=== PATIENT | male | born 1945 | race Caucasian/White ===

== ENCOUNTER 2017-07-31 13:20 | Observation (INO) ==
--- NOTE | 2017-07-31 13:46 | Emergency Department Note ---
Disposition Clinical Impression: TIA (transient ischemic attack) Disposition: Admitted As Inpatient Condition: Good General Adult HPI - General Chief complaint: ED Shortness of Breath/Dyspnea Stated complaint: kim x 2 days Time Seen by Provider: 07/31/17 13:23 Source: patient, EMS Limitations: no limitations Nursing Notes Reviewed: Yes Vital Signs Reviewed: Yes - History of Present Illness Pain Scale: 0 - Related Data Home Medications Medication Instructions Recorded Confirmed Aspirin Enteric Coated [Aspirin EC] 81 mg PO DAILY 07/31/17 07/31/17 Carbidopa/Levodopa 25/100 [Sinemet 1 each PO Q6H 07/31/17 07/31/17 25/100] Losartan Potassium [Cozaar] 100 mg PO DAILY 07/31/17 07/31/17 Phentermine/Topiramate [Qsymia 1 each PO DAILY 07/31/17 07/31/17 3.75 mg-23 mg Capsule] Propranolol HCl 40 mg PO BID 07/31/17 07/31/17 Rivaroxaban [Xarelto] 20 mg PO DAILY 07/31/17 07/31/17 Testosterone [Androgel] 2 spray TD DAILY 07/31/17 07/31/17 Tramadol HCl [Ultram] 100 mg PO QAM AND QHS 07/31/17 07/31/17 Allergies Allergy/AdvReac Type Severity Reaction Status Date / Time STATIN AdvReac See Uncoded 07/31/17 13:25 Comments Past Medical History - Past Medical History Medical history: Reports: coronary artery disease, CVA, hypertension, other Psychiatric history: Reports: depression - Social History Smoking Status: Former smoker Smokeless Tobacco Status: No Alcohol use: Reports: occasionally Drug use: Reports: none Physical Exam - General Limitations: no limitations General appearance: alert Course Vital Signs Temperature 98.3 F 07/31/17 13:25 Pulse Rate 79 07/31/17 13:25 Respiratory Rate 20 07/31/17 13:25 Blood Pressure 172/112 07/31/17 13:25 O2 Sat by Pulse Oximetry 95 07/31/17 13:25 Temperature 98.3 F 07/31/17 13:25 Pulse Rate 77 07/31/17 15:08 Respiratory Rate 20 07/31/17 15:08 Blood Pressure 174/104 07/31/17 15:08 O2 Sat by Pulse Oximetry 96 07/31/17 15:08 Oxygen Delivery Oxygen Delivery Room Air Medical Decision Making - MDM Narrative Medical decision making narrative: I examined this patient and my medical decision-making was reviewed with the Resident Physician. I agree with the documented findings, disposition and treatment plan as described except to the extent set forth below. Patient was seen on arrival by EMS from the [facility]. He was evaluated by Dr. King and myself, I agree with his evaluation and management plan, supervising care the patient's stay. 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 Staff noticed that he was sounds like a little ataxic. He said he was irritable. He had some little bit of memory loss. He had a stroke in September that left him with some difficulty with moving his fifth and fourth fingers of the left hand. He said otherwise he thinks he is fine. Denies any headache or chest pain. He states had a chest cold for last couple weeks which she thinks is probably viral. Were negative and a workup on him repeat a CT check lab work and reassess. He is in agreement with this plan. Head CT 07/31/17 13:38 IMPRESSION: No acute intracranial abnormality. Old infarction in the right parietal lobe, evolved since the prior study. Mild parenchymal volume loss. Mild chronic microvascular disease. D/ / Jamarcus Chou MD / Jamarcus Chou MD Interpreting Provider: Jamarcus Chou MD Chest X-Ray 07/31/17 13:43 IMPRESSION: 1. Chronic linear opacities within the lung bases bilaterally which may reflect scarring versus atelectasis. 2. Stable cardiomegaly. D/ / Asael Ackerman MD / Asael Ackerman MD Interpreting Provider: Asael Ackerman MD 1450 hrs. going to speak with neurology and admit him to the hospital. - Lab Data Result diagrams: 07/31/17 13:52 07/31/17 13:52 Lab Results 07/31/17 07/31/17 07/31/17 Range/Units 13:52 13:52 13:52 WBC 9.1 (4.3-11.1) K/mcL RBC 5.31 (4.19-5.50) M/mcL Hgb 16.7 (12.9-16.9) g/dL Hct 51.3 H (37.5-50.1) % MCV 96.6 (83.0-100.0) fL MCH 31.5 (28.0-33.3) pg MCHC 32.6 (31.6-35.5) g/dL RDW 14.9 H (11.5-14.5) % Plt Count 207 (140-400) K/mcL MPV 10.8 (9.4-12.4) fL Immature Gran % 0.3 (0-4) % Seg Neutrophils % 72.8 % Lymphocytes % 12.9 % Monocytes % 11.2 % Eosinophils % 2.4 % Basophils % 0.4 % Neutrophils # 6.6 (1.6-8.9) K/mcL Lymphocytes # 1.2 (0.6-4.6) K/mcL Monocytes # 1.0 (0.0-1.3) K/mcL Eosinophils # 0.2 (0.0-0.6) K/mcL Basophils # 0.0 (0.0-0.2) K/mcL PT 12.8 H (9.4-12.1) Seconds INR 1.2 APTT 31.4 (26.0-36.0) Seconds Sodium 139 (136-145) mEq/L Potassium 4.1 (3.5-4.5) mEq/L Chloride 106 (98-109) mEq/L Carbon Dioxide 27 (19-29) mEq/L BUN 18 (8-26) mg/dL Creatinine 0.91 (0.72-1.25) mg/dL Est GFR ( Amer) > 60 (> 60) Est GFR (Non-Af Amer) > 60 (> 60) BUN/Creatinine Ratio 20 (6-26) Glucose 98 (70-99) mg/dL Calculated Osmolality 290 (280-300) Calcium 9.0 (8.6-10.8) mg/dL Troponin I (0-0.03) ng/mL Urine Color (Yellow) Urine Clarity (Clear) Urine pH (5.0-8.0) pH Units Ur Specific [place] (1.010-1.025) Urine Protein (Neg-Trace) mg/dL Urine Glucose (UA) (Normal) mg/dL Urine Ketones (Negative) mg/dL Urine Blood (Negative) Urine Nitrite (Negative) Urine Bilirubin (Negative) Urine Urobilinogen (Normal) mg/dL Ur Leukocyte Esterase (Negative) Urine Microscopic RBC (0-3) per hpf Urine Microscopic WBC (0-3) per hpf Ur Squamous Epith Cells (None-Few) per lpf Urine Bacteria (None-Few) per hpf Hyaline Casts (None-Few) per lpf Ur Culture Indicated? (NO) 07/31/17 07/31/17 Range/Units 13:52 14:41 WBC (4.3-11.1) K/mcL RBC (4.19-5.50) M/mcL Hgb (12.9-16.9) g/dL Hct (37.5-50.1) % MCV (83.0-100.0) fL MCH (28.0-33.3) pg MCHC (31.6-35.5) g/dL RDW (11.5-14.5) % Plt Count (140-400) K/mcL MPV (9.4-12.4) fL Immature Gran % (0-4) % Seg Neutrophils % % Lymphocytes % % Monocytes % % Eosinophils % % Basophils % % Neutrophils # (1.6-8.9) K/mcL Lymphocytes # (0.6-4.6) K/mcL Monocytes # (0.0-1.3) K/mcL Eosinophils # (0.0-0.6) K/mcL Basophils # (0.0-0.2) K/mcL PT (9.4-12.1) Seconds INR APTT (26.0-36.0) Seconds Sodium (136-145) mEq/L Potassium (3.5-4.5) mEq/L Chloride (98-109) mEq/L Carbon Dioxide (19-29) mEq/L BUN (8-26) mg/dL Creatinine (0.72-1.25) mg/dL Est GFR ( Amer) (> 60) Est GFR (Non-Af Amer) (> 60) BUN/Creatinine Ratio (6-26) Glucose (70-99) mg/dL Calculated Osmolality (280-300) Calcium (8.6-10.8) mg/dL Troponin I 0.03 (0-0.03) ng/mL Urine Color Yellow (Yellow) Urine Clarity Clear (Clear) Urine pH 6.0 (5.0-8.0) pH Units Ur Specific [place] 1.029 H (1.010-1.025) Urine Protein 30 H (Neg-Trace) mg/dL Urine Glucose (UA) Normal (Normal) mg/dL Urine Ketones Negative (Negative) mg/dL Urine Blood Negative (Negative) Urine Nitrite Negative (Negative) Urine Bilirubin Negative (Negative) Urine Urobilinogen Normal (Normal) mg/dL Ur Leukocyte Esterase Negative (Negative) Urine Microscopic RBC 0-3 (0-3) per hpf Urine Microscopic WBC 0-3 (0-3) per hpf Ur Squamous Epith Cells Few (None-Few) per lpf Urine Bacteria None Seen (None-Few) per hpf Hyaline Casts None Seen (None-Few) per lpf Ur Culture Indicated? NO (NO)
--- NOTE | 2017-07-31 13:54 | Emergency Department Note ---
Disposition Clinical Impression: TIA (transient ischemic attack) Qualifiers: Transient cerebral ischemia type: unspecified Qualified Code(s): G45.9 - Transient cerebral ischemic attack, unspecified Disposition: Admitted As Inpatient Condition: Good Referrals: Constantino Moreno MD [Primary Care Provider] - Forms: ED Satisfaction Letter General Adult HPI - General Chief complaint: ED Shortness of Breath/Dyspnea Stated complaint: kim x 2 days Time Seen by Provider: 07/31/17 13:23 Source: patient, EMS Mode of arrival: EMS Limitations: no limitations Nursing Notes Reviewed: Yes Vital Signs Reviewed: Yes - History of Present Illness HPI Narrative: 72-year-old male history of CVA with left-sided deficit who presents to the ER due to agitation, disorientation and shortness of breath. Patient states that 3 weeks ago he had a URI. He was seen by his primary care provider and treated for viral rhinitis. States around 2 days ago he started having shortness of breath. He states today at work that the staff there told him that he seemed agitated and disoriented. He was not told that he had difficulty speaking or slurring his words. He states he had a stroke years ago with resultant deficit to his left third fourth and fifth fingers. He denies numbness tingling or paresthesias. No headaches or visual changes. No chest pain. No other complaints. Pt Subjective Complaint: Agitation, dyspnea Onset (ago): Just [employer] Radiation: non-radiation Pain Scale: 0 Improves with: nothing Worsens with: nothing Associated symptoms: Reports: cough, shortness of breath. Denies: chest pain, fever/chills, headaches, nausea/vomiting Treatments Prior to Arrival: none - Related Data Allergies Allergy/AdvReac Type Severity Reaction Status Date / Time STATIN AdvReac See Uncoded 07/31/17 13:25 Comments All systems ED: reviewed and negative except as stated. Constitutional: Denies: fever Cardiovascular: Denies: chest pain Respiratory: Reports: cough, dyspnea Gastrointestinal: Denies: abdominal pain, nausea, vomiting, diarrhea Neurological: Denies: headache, numbness, paresthesias Past Medical History - Past Medical History Attestation: Yes The following information was validated with the patient. Source: patient Medical history: Reports: coronary artery disease, CVA, hypertension, other Psychiatric history: Reports: depression - Social History Smoking Status: Former smoker Smokeless Tobacco Status: No Alcohol use: Reports: occasionally Drug use: Reports: none Physical Exam - General Limitations: no limitations General appearance: alert, in no apparent distress - Head Head exam: atraumatic, normocephalic - Eye Eye exam: Present: normal appearance - ENT ENT exam: normal exam - Neck Neck exam: Present: normal inspection, full ROM - Chest Chest inspection: Present: normal inspection, symmetric chest wall rise - Respiratory Respiratory exam: Present: normal lung sounds bilaterally - Cardiovascular Cardiovascular exam: Present: regular rate, normal rhythm, normal heart sounds - Abdominal Exam Abdominal exam: Present: soft, Non-Tender. Absent: tenderness - Extremities Exam Extremities exam: Present: normal inspection, full ROM - Expanded Upper Extremity Exam Shoulder exam: Present: normal inspection, full ROM Arm exam: Present: normal inspection, full ROM Elbow exam: Present: normal inspection, full ROM Forearm/Wrist exam: Present: normal inspection, full ROM Hand exam: Present: normal inspection, full ROM - Expanded Lower Extremity Exam Hip/Pelvis exam: Present: normal inspection, full ROM Upper leg exam: Present: normal inspection, full ROM Knee exam: Present: normal inspection, full ROM Lower leg exam: Present: normal inspection, full ROM Ankle exam: Present: normal inspection, full ROM Foot/toe exam: Present: normal inspection, full ROM Neurovascular/Tendon exam: Absent: motor deficit, sensory deficit - Neurological Exam Neurological exam: Present: alert, oriented X3, CN II-XII intact. Absent: motor sensory deficit - Expanded Neurological Exam Speech: Present: fluid speech Cranial nerves: EOM function (II, III, IV, ): Normal, facial sensation (V): Normal, spinal accessory function (XI): Normal, tongue deviation (XII): Normal Cerebellar function: finger to nose: Normal Motor strength - LUE: 5/5 Motor strength - RUE: 5/5 Motor strength - LLE: 5/5 Motor strength - RLE: 5/5 Sensory exam upper extremity: light touch: Normal Sensory exam lower extremity: light touch: Normal Coma Scale Eye Opening: Spontaneous Coma Scale Motor Response: Obeys Commands Coma Scale Verbal Response: Oriented Coma Scale Total: 15 - Psychiatric Psychiatric exam: Present: normal affect, normal mood - Skin Skin exam: Present: warm, dry, intact Course Course Narrative: Patient seen and examined. GCS 15. Nonfocal neurologic exam. NIH is 0. We will obtain a head CT as well as an EKG, chest x-ray and labs including urinalysis. - Reevaluation(s) Reevaluation #1: Discussed results of imaging and lab work with the patient. He is agreeable with coming into the hospital. - Consultations Consultation #1: I spoke with the on-call neurologist concerning this patient. They are happy to see the patient in consultation with admission to the hospitalist service. Vital Signs Temperature 98.3 F 07/31/17 13:25 Pulse Rate 79 07/31/17 13:25 Respiratory Rate 20 07/31/17 13:25 Blood Pressure 172/112 07/31/17 13:25 O2 Sat by Pulse Oximetry 95 07/31/17 13:25 Temperature 98.3 F 07/31/17 13:25 Pulse Rate 77 07/31/17 15:08 Respiratory Rate 20 07/31/17 15:08 Blood Pressure 174/104 07/31/17 15:08 O2 Sat by Pulse Oximetry 96 07/31/17 15:08 Oxygen Delivery Oxygen Delivery Room Air Medical Decision Making - [facility] Narrative Medical decision making narrative: 72-year-old male presents to the ER due to shortness of breath as well as agitation and disorientation. Was working today whenever staff noted he was in his usual self. He has a prior history of CVA. He is alert and oriented 3 here. He has no focal neurologic deficits. His CT scan demonstrates evolution of his old infarction of an unknown time set. Patient agreeable with admission to the hospital. Discussed with the neurologist will see in consultation. Patient admitted to the hospitalist service. - Lab Data Lab results reviewed: Yes I reviewed the patient's lab results. Result diagrams: 07/31/17 13:52 07/31/17 13:52 Lab Results 07/31/17 07/31/17 07/31/17 Range/Units 13:52 13:52 13:52 WBC 9.1 (4.3-11.1) K/mcL RBC 5.31 (4.19-5.50) M/mcL Hgb 16.7 (12.9-16.9) g/dL Hct 51.3 H (37.5-50.1) % MCV 96.6 (83.0-100.0) fL MCH 31.5 (28.0-33.3) pg MCHC 32.6 (31.6-35.5) g/dL RDW 14.9 H (11.5-14.5) % Plt Count 207 (140-400) K/mcL MPV 10.8 (9.4-12.4) fL Immature Gran % 0.3 (0-4) % Seg Neutrophils % 72.8 % Lymphocytes % 12.9 % Monocytes % 11.2 % Eosinophils % 2.4 % Basophils % 0.4 % Neutrophils # 6.6 (1.6-8.9) K/mcL Lymphocytes # 1.2 (0.6-4.6) K/mcL Monocytes # 1.0 (0.0-1.3) K/mcL Eosinophils # 0.2 (0.0-0.6) K/mcL Basophils # 0.0 (0.0-0.2) K/mcL PT 12.8 H (9.4-12.1) Seconds INR 1.2 APTT 31.4 (26.0-36.0) Seconds Sodium 139 (136-145) mEq/L Potassium 4.1 (3.5-4.5) mEq/L Chloride 106 (98-109) mEq/L Carbon Dioxide 27 (19-29) mEq/L BUN 18 (8-26) mg/dL Creatinine 0.91 (0.72-1.25) mg/dL Est GFR ( Amer) > 60 (> 60) Est GFR (Non-Af Amer) > 60 (> 60) BUN/Creatinine Ratio 20 (6-26) Glucose 98 (70-99) mg/dL Calculated Osmolality 290 (280-300) Calcium 9.0 (8.6-10.8) mg/dL Troponin I (0-0.03) ng/mL Urine Color (Yellow) Urine Clarity (Clear) Urine pH (5.0-8.0) pH Units Ur Specific [place] (1.010-1.025) Urine Protein (Neg-Trace) mg/dL Urine Glucose (UA) (Normal) mg/dL Urine Ketones (Negative) mg/dL Urine Blood (Negative) Urine Nitrite (Negative) Urine Bilirubin (Negative) Urine Urobilinogen (Normal) mg/dL Ur Leukocyte Esterase (Negative) Urine Microscopic RBC (0-3) per hpf Urine Microscopic WBC (0-3) per hpf Ur Squamous Epith Cells (None-Few) per lpf Urine Bacteria (None-Few) per hpf Hyaline Casts (None-Few) per lpf Ur Culture Indicated? (NO) 07/31/17 07/31/17 Range/Units 13:52 14:41 WBC (4.3-11.1) K/mcL RBC (4.19-5.50) M/mcL Hgb (12.9-16.9) g/dL Hct (37.5-50.1) % MCV (83.0-100.0) fL MCH (28.0-33.3) pg MCHC (31.6-35.5) g/dL RDW (11.5-14.5) % Plt Count (140-400) K/mcL MPV (9.4-12.4) fL Immature Gran % (0-4) % Seg Neutrophils % % Lymphocytes % % Monocytes % % Eosinophils % % Basophils % % Neutrophils # (1.6-8.9) K/mcL Lymphocytes # (0.6-4.6) K/mcL Monocytes # (0.0-1.3) K/mcL Eosinophils # (0.0-0.6) K/mcL Basophils # (0.0-0.2) K/mcL PT (9.4-12.1) Seconds INR APTT (26.0-36.0) Seconds Sodium (136-145) mEq/L Potassium (3.5-4.5) mEq/L Chloride (98-109) mEq/L Carbon Dioxide (19-29) mEq/L BUN (8-26) mg/dL Creatinine (0.72-1.25) mg/dL Est GFR ( Amer) (> 60) Est GFR (Non-Af Amer) (> 60) BUN/Creatinine Ratio (6-26) Glucose (70-99) mg/dL Calculated Osmolality (280-300) Calcium (8.6-10.8) mg/dL Troponin I 0.03 (0-0.03) ng/mL Urine Color Yellow (Yellow) Urine Clarity Clear (Clear) Urine pH 6.0 (5.0-8.0) pH Units Ur Specific [place] 1.029 H (1.010-1.025) Urine Protein 30 H (Neg-Trace) mg/dL Urine Glucose (UA) Normal (Normal) mg/dL Urine Ketones Negative (Negative) mg/dL Urine Blood Negative (Negative) Urine Nitrite Negative (Negative) Urine Bilirubin Negative (Negative) Urine Urobilinogen Normal (Normal) mg/dL Ur Leukocyte Esterase Negative (Negative) Urine Microscopic RBC 0-3 (0-3) per hpf Urine Microscopic WBC 0-3 (0-3) per hpf Ur Squamous Epith Cells Few (None-Few) per lpf Urine Bacteria None Seen (None-Few) per hpf Hyaline Casts None Seen (None-Few) per lpf Ur Culture Indicated? NO (NO) - Radiology Data Radiology results reviewed: Yes I reviewed the patient's radiology results. Head CT 07/31/17 13:38 IMPRESSION: No acute intracranial abnormality. Old infarction in the right parietal lobe, evolved since the prior study. Mild parenchymal volume loss. Mild chronic microvascular disease. D/ / Jamarcus Chou MD / Jamarcus Chou MD Interpreting Provider: Jamarcus Chou MD Chest X-Ray 07/31/17 13:43 IMPRESSION: 1. Chronic linear opacities within the lung bases bilaterally which may reflect scarring versus atelectasis. 2. Stable cardiomegaly. D/ / Asael Ackerman MD / Asael Ackerman MD Interpreting Provider: Asael Ackerman MD - EKG Data EKG #1 EKG attestation: Yes I reviewed and interpreted this EKG. EKG results narrative: EKG demonstrates sinus rhythm with PVCs with rate of 77 bpm. Normal axis. Poor R-wave progression. Normal intervals. No gross ST elevations or depressions. No acute ischemic findings. No significant changes from previous EKG dated 10/04/16. S.B.A.R. - S.B.A.R. Situation: Demographics, MOA Background: Presenting Complaint, Relevant PMH, Meds, & Allergies Assessment: Course and respsone to treatment, Exam Concerns, Patient/Family Expectation, Pertinant Lab Results Recommendation: Barrier(s) to disposition, Recommendation based on pending studies, treatments, or consults S.B.A.R. Report Given to: Dr. Tracy Kaba Repor Time: 15:30
[2017-07-31 14:02] LABS: Basophils % 0.4 %; Eosinophils # 0.2 K/mcL (0.0-0.6); Eosinophils % 2.4 %; Hematocrit 51.3 % (37.5-50.1); Hemoglobin 16.7 g/dL (12.9-16.9); Immature Granulocytes % 0.3 % (0-4); Lymphocytes # 1.2 K/mcL (0.6-4.6); Lymphocytes % 12.9 %; Mean Corpuscular HGB Conc 32.6 g/dL (31.6-35.5); Mean Corpuscular Hemoglobin 31.5 pg (28.0-33.3); Mean Corpuscular Volume 96.6 fL (83.0-100.0); Mean Platelet Volume 10.8 fL (9.4-12.4); Monocytes % 11.2 %; Neutrophils # 6.6 K/mcL (1.6-8.9); Platelet Count 207 K/mcL (140-400); Red Blood Count 5.31 M/mcL (4.19-5.50); Red Cell Distribution Width 14.9 % (11.5-14.5); Segmented Neutrophils % 72.8 %
[2017-07-31 14:06] LABS: INR 1.2; Prothrombin Time 12.8 Seconds (9.4-12.1)
[2017-07-31 14:09] LABS: Activated Partial Thrombo Time 31.4 Seconds (26.0-36.0)
[2017-07-31 14:12] LABS: BUN/Creatinine Ratio 20 (6-26); Blood Urea Nitrogen 18 mg/dL (8-26); Carbon Dioxide 27 mEq/L (19-29); Chloride 106 mEq/L (98-109); Glucose 98 mg/dL (70-99); Osmolality,Calculated 290 (280-300); Potassium 4.1 mEq/L (3.5-4.5); Sodium 139 mEq/L (136-145); eGFR For African Americans > 60 (> 60); eGFR For Non-African Americans > 60 (> 60)
[2017-07-31 14:50] LABS: Bilirubin,Urine Negative (Negative); Blood,Urine Negative (Negative); Clarity,Urine Clear (Clear); Color,Urine Yellow (Yellow); Glucose,Urine (UA) Normal (Normal); Ketones,Urine Negative (Negative); Leukocyte Esterase,Urine Negative (Negative); Nitrite,Urine Negative (Negative); Protein,Urine 30 mg/dL (Neg-Trace); Specific Gravity,Urine 1.029 (1.010-1.025); Urobilinogen,Urine Normal (Normal)
[2017-07-31 14:52] LABS: Bacteria,Urine None Seen per hpf (None-Few); Hyaline Casts,Urine None Seen per lpf (None-Few); RBC,Urine 0-3 per hpf (0-3); Squamous Epithelial Cell,Urine Few per lpf (None-Few); WBC,Urine 0-3 per hpf (0-3)
[2017-07-31] MEDS ORDERED: Acetaminophen 325 MG TABLET PO PRN (21:26)
[2017-07-31] MEDS ORDERED: Ondansetron 4 MG/2 ML VIAL IVP PRN (21:26)
[2017-07-31] MEDS ORDERED: Naloxone 0.4 MG/ML INJ IVP PRN (21:26)
[2017-07-31] MEDS ORDERED: *HR* HYDROcodone/Acet 5/325 mg TABLET PO PRN (21:26)
[2017-07-31] MEDS: Ipratropium/Albuterol Neb 3 ML IH SCH (22:08)
[2017-07-31] MEDS: Carbidopa/Levodopa 25/100 TABLET PO SCH (22:14)
--- NOTE | 2017-07-31 22:48 | Internal Med History&Physical ---
<Luis Miguel Lozano - Last Filed: 07/31/17 23:12> Date of Encounter: 07/31/17 Time of Encounter: 19:00 Assessment and Plan (1) Transient disorientation Current visit: Yes Status: Acute Acute disorientation reported by staff today where pt. was working. Pt. denies CVA sx or deficits. CT of head brain today without contrast shows no acute intracranial abnormality, old infarction in the right parietal lobe evolved since prior study, mild parenchymal volume loss, and mild chronic microvascular disease. MRI of the head/brain w/o contrast ordered. Echocardiogram. Bilateral carotid Doppler duplex imaging. Continuous cardiac telemetry. EKG today shows sinus rhythm with occasional ventricular premature complexes, borderline left axis deviation, nonspecific ST elevation. Neurology consult ordered in ED. Pt. is at high risk for CVA/TIA d/t previous hx and risk factors. Observation. (2) Anxiety Current visit: Yes Status: Acute Acute anxiety. Pt. reports he became agitated at work today d/t not taking his Paxil for three days because his prescription ran out. Paxil 20 mg daily ordered. Monitor patient for signs of agitation/anxiety. (3) CAD (coronary artery disease) Current visit: Yes Status: Chronic Hx of CAD. Continuous cardiac telemetry. Continue pts. Propranolol, Cozaar, Xarelto, and aspirin therapy. Qualifiers: Coronary Disease-Associated Artery/Lesion type: [place] artery [place] vs. transplanted heart: [place] heart Associated angina: angina presence unspecified Qualified Code(s): I25.10 - Atherosclerotic heart disease of [place] coronary artery without angina pectoris (4) History of CVA (cerebrovascular accident) Current visit: Yes Status: Resolved Hx of CVA several years ago. Resolved. Pt. states he has residual numbness of the 4th and 5th digits of the left hand. Neuro checks Q4HRWA. (5) HTN (hypertension) Current visit: Yes Status: Chronic Hx of chronic HTN. Monitor pt. and VS. Continue propranolol and Cozaar. Qualifiers: Hypertension type: essential hypertension Qualified Code(s): I10 - Essential (primary) hypertension (6) DVT prophylaxis Current visit: Yes Status: Acute Continuation of Xarelto for DVT prophylaxis. Monitor patient for unusual bleeding. Internal Medicine - H&P: HPI Chief complaint: SOB/Dypnea/Disorientation Admitted From: Emergency Dept Plans for Post Hospital Care: Home History of present illness: Mr. Medina is a 72 year old male medical history of CAD, previous CVA 3 years ago, and hypertension presents from the ED with chief complaint of shortness of breath, dyspnea, and disorientation. Patient states he was at work and became agitated today due to not having his Paxil for 3 days. Patient denies having any neurological deficits or symptoms. Patient reports he accidentally hit his foot on a door jamb which caused him to walk favoring that foot during the incident. Staff reported that he seemed agitated and disoriented. Patient states he had a CVA 3 years ago and has residual deficit in his third and fourth fingers of the left hand. Patient denies recent illness, fever, chills, nausea, vomiting, diarrhea, constipation, chest pain, palpitations, headache, changes in vision, unusual bleeding, numbness, tingling, lightheadedness, dizziness, pre-syncope, or syncope. Past Med Surg Social Fam HX - Past Medical History Source: patient, old records reviewed Medical history: coronary artery disease, CVA, hypertension Psychiatric history: depression - Past Surgical History Surgical History: appendectomy, vasectomy - Social History Smoking Status: Former smoker Smokeless Tobacco Status: No Alcohol use: occasionally Drug use: none Occupational status: employed Current living situation: Home, With Family Activity Level: Independent ambulation, Very active Recent Out of Country Travel Within the Last 8 Weeks: No Exposure or Possible Exposure to Illness During Travel: No - Family History Father Race: Family Member Ethnicity: Non- Living Status: Age at : 85 Cause of : Dementia Hx Family Neurologic Disorders: Yes (Dementia) Mother Race: Family Member Ethnicity: Non- Living Status: Age at : 84 Cause of : Dementia Hx Family Neurologic Disorders: Yes (Dementia) Brother Race: Family Member Ethnicity: Non- Living Status: Age at : 52 Cause of : Emphysema Hx Family Respiratory Disorders: Yes (Emphysema) Internal Medicine - H&P: Meds Aspirin Enteric Coated [Aspirin EC] 81 mg PO DAILY 07/31/17 [History] Carbidopa/Levodopa 25/100 [Sinemet 25/100] 1 each PO Q6H 07/31/17 [History] Losartan Potassium [Cozaar] 100 mg PO DAILY 07/31/17 [History] Phentermine/Topiramate [Qsymia 3.75 mg-23 mg Capsule] 1 each PO DAILY 07/31/17 [ History] Propranolol HCl 40 mg PO BID 07/31/17 [History] Rivaroxaban [Xarelto] 20 mg PO DAILY 07/31/17 [History] Testosterone [Androgel] 2 spray TD DAILY 07/31/17 [History] Tramadol HCl [Ultram] 100 mg PO QAM AND QHS 07/31/17 [History] 3 Allergy/AdvReac Type Severity Reaction Status Date / Time STATIN AdvReac See Uncoded 07/31/17 13:25 Comments All Systems PM: A 10-system review of systems was performed and is negative for pertinent findings except as documented above in the HPI. - Constitutional Constitutional: no chills, no fever(s), no night sweats - EENT Eyes: no change in vision, no discharge, no pain, no photophobia Ears: no ear discharge, no ear pain, no tinnitus Nose, mouth and throat: no dysphagia, no nasal discharge, no neck pain, no sore throat - Breasts Breasts: as per HPI - Cardiovascular Cardiovascular ROS IM: as per HPI, dyspnea, dyspnea on exertion, no chest pain, no diaphoresis, no lightheadedness, no palpitations, no syncope - Respiratory Respiratory: as per HPI, dyspnea, dyspnea on exertion, no cough, no wheezing, no excessive phlegm production - Gastrointestinal Gastrointestinal: no abdominal pain, no diarrhea, no hematemesis, no hematochezia, no melena, no nausea, no vomiting - Genitourinary Genitourinary ROS male: as per HPI - Musculoskeletal Musculoskeletal ROS IM: no numbness, no tingling - Integumentary Integumentary IM: no rash, no unusual bruising - Neurological Neurological ROS: as per HPI (Residual effect of previous CVA in left 3rd and 4th digits of left hand), numbness, no confusion, no convulsions, no focal weakness, no tingling, no tremor(s) - Psychiatric Psychiatric: as per HPI, anxiety - Endocrine Endocrine IM: as per HPI - Hematologic/Lymphatic Hematologic/Lymphatic: no easy bruising - Allergic/Immunologic Allergic/Immunologic: as per HPI - Constitutional Vitals: Temp Pulse Resp BP Pulse Ox 98.3 F 73 21 140/81 91 07/31/17 21:40 07/31/17 21:40 07/31/17 21:40 07/31/17 21:40 07/31/17 19:51 General appearance: Present: cooperative, A&O X 3, pleasant, no acute distress, obese, answers questions appropriately - Head Head exam: Present: atraumatic, normal inspection, normocephalic - Eye Eye exam: Present: PERRL, conjuntiva pink, sclera anicteric Pupils: Present: PERRL - ENT ENT exam: Present: normal exam, normal external ear exam - Neck Neck exam general surgery: Present: normal inspection, supple, trachea midline. Absent: lymphadenopathy - Respiratory Respiratory exam: Present: accessory muscle use, decreased breath sounds. Absent: rales, rhonchi, wheezes - Cardiovascular Cardiovascular exam: Present: irregular rhythm, +S1, +S2. Absent: diastolic murmur, gallop, rubs, systolic murmur - GI/Abdominal GI/Abdominal exam: Present: normal bowel sounds, soft, no peritoneal signs. Absent: distended, tenderness - Rectal Rectal exam: Present: deferred - Additional comments: exam deferred. - Extremities Exam Extremities exam: Present: warm, radial pulses palpable and symmetrical. Absent : calf tenderness, cyanotic, pedal edema - Back Exam Back exam: Present: normal inspection - Neurological Exam Neurological exam: Present: CN II-XII intact, oriented X3, no focal deficits. Absent: pronater drift, facial droop, speech deficit - Psychiatric Psychiatric exam: Present: normal affect, normal mood - Skin Skin exam: Present: dry, intact Internal Med - H&P Results - Labs CBC & Chem 7: 07/31/17 13:52 07/31/17 13:52 - EKG Data EKG shows normal: sinus rhythm - EKG Data Prior EKG available for review: yes EKG comments: 07/31/17 22:53 EKG dated 10/04/16 shows sinus bradycardia. EKG dated 07/31/17 shows sinus rhythm with occasional ventricular premature complexes, borderline left axis deviation, and nonspecific ST elevation. - Diagnostic Studies Chest x-ray Additional comments: Impressions Chest X-Ray 07/31/17 13:43 IMPRESSION: 1. Chronic linear opacities within the lung bases bilaterally which may reflect scarring versus atelectasis. 2. Stable cardiomegaly. D/ / Asael Ackerman MD / Asael Ackerman MD Interpreting Provider: Asael Ackerman MD CT scan - head Additional comments: Impressions Head CT 07/31/17 13:38 IMPRESSION: No acute intracranial abnormality. Old infarction in the right parietal lobe, evolved since the prior study. Mild parenchymal volume loss. Mild chronic microvascular disease. D/ / Jamarcus Chou MD / Jamarcus Chou MD Interpreting Provider: Jamarcus Chou MD <Tone Valverde - Last Filed: 08/01/17 06:20> Date of Encounter: 08/01/17 Internal Medicine - H&P: HPI History of present illness: Mr. Medina is a 72 year old male All Systems PM: A 10-system review of systems was performed and is negative for pertinent findings except as documented above in the HPI. - Constitutional Vitals: Temp Pulse Resp BP Pulse Ox 97.7 F 72 20 155/99 92 08/01/17 04:58 08/01/17 04:58 08/01/17 05:05 08/01/17 04:58 08/01/17 05:05 Internal Med - H&P Results - Labs CBC & Chem 7: 07/31/17 13:52 07/31/17 13:52 - Attending Attestation I have seen and examined the patient independently. I have discussed with [employer] CONSULTANT regarding the management plan. Agree with the documentation.
[2017-08-01] MEDS: Ipratropium/Albuterol Neb 3 ML IH SCH ×2 (05:05→10:02)
[2017-08-01] MEDS: Carbidopa/Levodopa 25/100 TABLET PO SCH ×2 (05:10→09:38)
[2017-08-01 06:55] LABS: Basophils % 0.5 %; Eosinophils # 0.2 K/mcL (0.0-0.6); Eosinophils % 2.6 %; Hematocrit 49.2 % (37.5-50.1); Hemoglobin 16.1 g/dL (12.9-16.9); Immature Granulocytes % 0.9 % (0-4); Immature Platelets 6.7 % (1.1-6.1); Lymphocytes # 1.3 K/mcL (0.6-4.6); Lymphocytes % 19.5 %; Mean Corpuscular HGB Conc 32.7 g/dL (31.6-35.5); Mean Corpuscular Hemoglobin 31.7 pg (28.0-33.3); Mean Corpuscular Volume 96.9 fL (83.0-100.0); Mean Platelet Volume 11.3 fL (9.4-12.4); Monocytes # 0.9 K/mcL (0.0-1.3); Monocytes % 13.9 %; Neutrophils # 4.1 K/mcL (1.6-8.9); Platelet Count 183 K/mcL (140-400); Red Blood Count 5.08 M/mcL (4.19-5.50); Red Cell Distribution Width 14.9 % (11.5-14.5); Segmented Neutrophils % 62.6 %
[2017-08-01 07:01] LABS: INR 1.2; Prothrombin Time 12.8 Seconds (9.4-12.1)
[2017-08-01 07:04] LABS: Activated Partial Thrombo Time 28.6 Seconds (26.0-36.0); Hemoglobin A1C 5.4 %
[2017-08-01 07:09] LABS: Albumin 3.2 g/dL (3.5-5.0); Albumin/Globulin Ratio 0.9 (1.1-2.2); Alkaline Phosphatase 50 Units/L (38-126); Aspartate Amino Transferase 24 Units/L (5-34); BUN/Creatinine Ratio 22 (6-26); Bilirubin,Total 0.9 mg/dL (0.2-1.2); Blood Urea Nitrogen 18 mg/dL (8-26); Calcium 8.6 mg/dL (8.6-10.8); Carbon Dioxide 24 mEq/L (19-29); Chloride 107 mEq/L (98-109); Chol/HDL Ratio 5.9 (0-4.9); Cholesterol 165 mg/dL (< 200); Globulin 3.4 g/dL (2.4-3.5); Glucose 96 mg/dL (70-99); HDL Cholesterol 28 mg/dL (40-59); LDL Cholesterol,Calculated 105 mg/dL (0-99); Osmolality,Calculated 288 (280-300); Potassium 3.8 mEq/L (3.5-4.5); Sodium 138 mEq/L (136-145); Total Protein 6.6 g/dL (6.0-8.3); Triglycerides 159 mg/dL (< 150); eGFR For African Americans > 60 (> 60); eGFR For Non-African Americans > 60 (> 60)
[2017-08-01 07:30] LABS: Alanine Aminotransferase < 6 Units/L (0-55)
[2017-08-01] MEDS ORDERED: Aspirin Enteric Coated 81 MG Tablet PO SCH (09:00)
[2017-08-01] MEDS ORDERED: *HR* Rivaroxaban 10 MG TABLET PO SCH (09:00)
[2017-08-01] MEDS ORDERED: traMADol 50 MG TABLET PO SCH (09:00)
[2017-08-01] MEDS ORDERED: Perflutren Lipid Microsphere 1.3 ML in 0.9 % Sodium Chloride 8.7 ML IVP ONE (11:27)
[2017-08-01] MEDS ORDERED: Perflutren Lipid Microsphere 2 ML VIAL ONE (11:32)
--- NOTE | 2017-08-01 12:28 | Discharge Summary ---
<CharlieTima farrell - Last Filed: 08/01/17 13:31> Date of Encounter: 08/01/17 Time of Encounter: 12:28 - Discharge Diagnosis (1) Transient disorientation Priority: Primary Status: Acute Comments: Transient episode of disorientation and agitation without any other focal findings on his examination No evidence of stroke on his MRI brain or clinical signs and symptoms suggestive of a stroke or TIA. Disorientation likely effect of withdrawal from the abrupt discontinuation of the SSRIs Paxil (2) History of CVA (cerebrovascular accident) Priority: Secondary Status: Resolved Comments: Patient had a large right MCA infarct but luckily enough he did not have any residual deficit from it and at the same time this time there was no evidence of any stroke on his MRI scan. Patient is being maintained on anticoagulation with Xarelto and aspirin Patient followed up by cardiology, suggested that he should continue on it. This time neurology does not recommend any changes in his anticoagulation. He did not have any focal motor residual deficit does not think that he would require any physical therapy or rehabilitation consultation (3) CAD (coronary artery disease) Priority: Secondary Status: Chronic Comments: Patient followed up by cardiology, suggested that he should continue ASA and Xarelto Qualifiers: Coronary Disease-Associated Artery/Lesion type: [place] artery [place] vs. transplanted heart: [place] heart Associated angina: angina presence unspecified Qualified Code(s): I25.10 - Atherosclerotic heart disease of [place] coronary artery without angina pectoris (4) HTN (hypertension) Priority: Secondary Status: Chronic Comments: Continue home meds Start Amlodipine Qualifiers: Hypertension type: essential hypertension Qualified Code(s): I10 - Essential (primary) hypertension (5) Anxiety Priority: Secondary Status: Chronic Comments: Resume SSRIs Paxil that he was on for past several years. According to the patient, he thought that he did not need it anymore and stopped taking it abruptly. Recommend weaning Paxil once follow up with PCP (6) Obesity (BMI 30-39.9) Priority: Secondary Status: Chronic Comments: Consider diet modification/ exercise (7) DVT prophylaxis Priority: Primary Status: Acute Comments: Xarelto - Discharge Medications Prescriptions: amLODIPine [Norvasc] 5 mg PO DAILY #30 tablet Paroxetine HCl [Paxil] See Taper PO DAILY #30 tablet Home Medications: Aspirin Enteric Coated [Aspirin EC] 81 mg PO DAILY 07/31/17 [History] Carbidopa/Levodopa 25/100 [Sinemet 25/100] 1 each PO Q6H 07/31/17 [History] Losartan Potassium [Cozaar] 100 mg PO DAILY 07/31/17 [History] Phentermine/Topiramate [Qsymia 3.75 mg-23 mg Capsule] 1 each PO DAILY 07/31/17 [ History] Propranolol HCl 40 mg PO BID 07/31/17 [History] Rivaroxaban [Xarelto] 20 mg PO DAILY 07/31/17 [History] Testosterone [Androgel] 2 spray TD DAILY 07/31/17 [History] Tramadol HCl [Ultram] 100 mg PO QAM AND QHS 07/31/17 [History] Acetaminophen [Tylenol] 650 mg PO Q6HR PRN tablet 08/01/17 [Rx] Paroxetine HCl [Paxil] See Taper PO DAILY #30 tablet 08/01/17 [Rx] amLODIPine [Norvasc] 5 mg PO DAILY #30 tablet 08/01/17 [Rx] Allergies/Adverse Reactions: 3 Allergy/AdvReac Type Severity Reaction Status Date / Time STATIN AdvReac See Uncoded 07/31/17 13:25 Comments Procedures/tests Complete & Pending: Procedures Performed prior 72 hours Category Date Time Status MR head/brain wo con [MR] Routine MRI 08/01/17 07:00 Draft EV carotid duplex imaging BI Routine Y 08/01/17 21:48 Ordered EV echocardiogram w enhance Routine Y 08/01/17 21:47 Ordered Date of admission: 07/31/17 15:40 Primary care physician: Constantino Moreno MD Consults: 07/31/17 17:21 Consult to Pastoral Services [CONS] Routine Comment: Discharging clinician: Tima Kelsey Anticipated date of discharge: 08/01/17 - Patient Status Disposition: Home, Self-Care Condition: Good Functional capacity at discharge: independent ambulation Overall status at discharge: patient is back to baseline - Discharge Instructions Follow Up With: Constantino Moreno MD [Primary Care Provider] - Additional Instructions: Continue Paxil 20mg PO daily for 10 days then 10 mg for 10 days Start Amlodipine 5mg pO daily Continue Xarelto and ASA Follow up with PCP as scheduled in 2 days - Diet and Activity Activity: resume usual activities as tolerated Diet: low fat, low cholesterol Hospital course: Mr. Medina is a 72 year old male medical history of CAD, previous CVA 3 years ago, and hypertension presents from the ED with chief complaint of shortness of breath, dyspnea, and disorientation. Patient states he was at work and became agitated today due to not having his Paxil for 3 days. Patient denies having any neurological deficits or symptoms. Patient reports he accidentally hit his foot on a door jamb which caused him to walk favoring that foot during the incident. Staff reported that he seemed agitated and disoriented. Patient states he had a CVA 3 years ago and has residual deficit in his third and fourth fingers of the left hand. Neurology was consulted and determined patient had transient episode of disorientation and agitation without any other focal findings on his examination and no evidence of any stroke on his MRI of the brain neither the clinical signs and symptoms are suggestive of a stroke or TIA. It is quite possible that his disorientation could be the effect of withdrawal from the abrupt discontinuation of the SSRIs Paxil that he was on for past several years. According to the patient he thought that he does not need that medication anymore please stopped taking it abruptly. There was no evidence of any stroke on his MRI scan. Patient is being maintained on anticoagulation with Xarelto and 81mg aspirin Cardiology suggested that he should continue on it. Neurology did not recommend any changes in his anticoagulation. He did not have any focal motor residual deficit does not think that he would require any physical therapy or rehabilitation consultation.Of note, patient also noted to be hypertensive and started on Amlodipine. Patient discharge to home and instructed to follow up with PCP in 2 days to discuss weaning off Paxil. - Time Spent with Patient Total time spent providing and/or coordinating discharge services: - Constitutional Vitals: Temp Pulse Resp BP Pulse Ox 98.1 F 65 17 169/106 97 08/01/17 12:00 08/01/17 12:00 08/01/17 12:00 08/01/17 12:00 08/01/17 12:00 General appearance: Present: cooperative, A&O X 3, pleasant, no acute distress, obese, answers questions appropriately - Head Head exam: Present: atraumatic, normocephalic - Eye Eye exam: Present: PERRL, conjuntiva pink, sclera anicteric Pupils: Present: PERRL - ENT ENT exam: Present: mucous membranes moist, normal exam Additional comments: No uvual - Neck Neck exam general surgery: Present: supple, trachea midline. Absent: lymphadenopathy - Respiratory Respiratory exam: Present: CTAB. Absent: accessory muscle use, rales, rhonchi, wheezes - Cardiovascular Cardiovascular exam: Present: RRR, +S1, +S2. Absent: diastolic murmur, gallop, rubs, systolic murmur - GI/Abdominal GI/Abdominal exam: Present: normal bowel sounds, soft, no peritoneal signs. Absent: distended, tenderness - Extremities Exam Extremities exam: Present: warm, radial pulses palpable and symmetrical. Absent : calf tenderness, cyanotic, pedal edema - Back Exam Back exam: Present: normal inspection. Absent: paraspinal tenderness, tenderness - Neurological Exam Neurological exam: Present: CN II-XII intact, oriented X3, no focal deficits. Absent: pronater drift, facial droop, speech deficit - Psychiatric Psychiatric exam: Present: normal affect, normal mood - Skin Skin exam: Present: dry, intact, warm Additional comments: small lipoma right scapula, non-infected <Kole Esquivel H - Last Filed: 08/01/17 13:35> Date of Encounter: 08/01/17 Procedures/tests Complete & Pending: Procedures Performed prior 72 hours Category Date Time Status MR head/brain wo con [MR] Routine MRI 08/01/17 07:00 Draft EV carotid duplex imaging BI Routine Y 08/01/17 21:48 Ordered EV echocardiogram w enhance Routine Y 08/01/17 21:47 Ordered Date of admission: 07/31/17 15:40 Primary care physician: Constantino Moreno MD Consults: 07/31/17 17:21 Consult to Pastoral Services [CONS] Routine Comment: Hospital course: Mr. Medina is a 72 year old male - Time Spent with Patient Total time spent providing and/or coordinating discharge services: - Constitutional Vitals: Temp Pulse Resp BP Pulse Ox 98.1 F 65 17 169/106 97 08/01/17 12:00 08/01/17 12:00 08/01/17 12:00 08/01/17 12:00 08/01/17 12:00 - Attending Attestation SSRI withdrawal/Paxil Accelerated hypertension, continue losartan 100 mg daily and add 5 mg of amlodipine daily Follow-up with primary care physician, Taper Paxil 20 mg daily for one week and 10 mg daily for another week and stop Time spent on discharge 40 minutes I examined this patient and my medical decision-making was reviewed with the Resident Physician. I agree with the documented findings, disposition and treatment plan as described except to the extent set forth below.
--- NOTE | 2017-08-01 12:37 | Neurology - Consult Note ---
Date of Encounter: 08/01/17 Time of Encounter: 10:25 Assessment and Plan (1) Transient disorientation Current Visit: Yes Status: Acute This patient was admitted with transient episode of disorientation and agitation without any other focal findings on his examination at the same time no evidence of any stroke on his MRI of the brain neither the clinical signs and symptoms are suggestive of a stroke or TIA. It is quite possible that his disorientation could be the effect of withdrawal from the abrupt discontinuation of the SSRIs Paxil that he was on for past several years. According to the patient he thought that he does not need that medication anymore please stopped taking it abruptly. 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 Patient is being maintained on anticoagulation with XARELTO, along with a baby aspirin his been followed up by cardiology, suggested that he should continue on it. This time I would not recommend any changes in his anticoagulation. He did not have any focal motor residual deficit does not think that he would require any physical therapy or rehabilitation consultation (2) History of CVA (cerebrovascular accident) Current Visit: Yes Status: Resolved Stable on anticoagulation suggested to continue on it no evidence of any new stroke on his MRI of the brain History of Present Illness HPI: Mr. Medina is a 72 year old male with history of CVA without any residual deficit, also with CAD, and hypertension presents from the ED with chief complaint of shortness of breath, dyspnea, and disorientation. 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 Patient denies recent illness, fever, chills, nausea, vomiting, diarrhea, constipation, chest pain, palpitations, headache, changes in vision, unusual bleeding, numbness, tingling, lightheadedness, dizziness, pre-syncope, CT scan in the emergency room did not show any acute deficit he was admitted with a concern of a TIA Past Med Surg Social Fam HX - Past Medical History Medical history: coronary artery disease, CVA, hypertension Psychiatric history: depression - Past Surgical History Surgical History: appendectomy, vasectomy - Social History Smoking Status: Former smoker Smokeless Tobacco Status: No Alcohol use: occasionally Drug use: none - Family History Father Race: Family Member Ethnicity: Non- Living Status: Age at : 85 Cause of : Dementia Hx Family Neurologic Disorders: Yes (Dementia) Mother Race: Family Member Ethnicity: Non- Living Status: Age at : 84 Cause of : Dementia Hx Family Neurologic Disorders: Yes (Dementia) Brother Race: Family Member Ethnicity: Non- Living Status: Age at : 52 Cause of : Emphysema Hx Family Respiratory Disorders: Yes (Emphysema) Medications and Allergies Aspirin Enteric Coated [Aspirin EC] 81 mg PO DAILY 07/31/17 [History] Carbidopa/Levodopa 25/100 [Sinemet 25/100] 1 each PO Q6H 07/31/17 [History] Losartan Potassium [Cozaar] 100 mg PO DAILY 07/31/17 [History] Phentermine/Topiramate [Qsymia 3.75 mg-23 mg Capsule] 1 each PO DAILY 07/31/17 [ History] Propranolol HCl 40 mg PO BID 07/31/17 [History] Rivaroxaban [Xarelto] 20 mg PO DAILY 07/31/17 [History] Testosterone [Androgel] 2 spray TD DAILY 07/31/17 [History] Tramadol HCl [Ultram] 100 mg PO QAM AND QHS 07/31/17 [History] 3 Allergy/AdvReac Type Severity Reaction Status Date / Time STATIN AdvReac See Uncoded 07/31/17 13:25 Comments All Systems: A 10-system review of systems was performed and is negative for pertinent findings except as documented above in the HPI. Physical Examination - Vital Signs Vital Signs: Initial Vital Signs Temp Pulse Resp BP Pulse Ox 98.3 F 79 20 172/112 95 07/31/17 13:25 07/31/17 13:25 07/31/17 13:25 07/31/17 13:25 07/31/17 13:25 - Constitutional General appearance: comfortable - Neurologic Sensorimotor examination: intact Detailed motor examination: full strength in all major muscle groups Motor examination - right side: 5/5: deltoids, biceps, triceps, wrist flexion, wrist extension, tele marketing executive, hip flexors, tibialis Anterior, quadriceps, toe extension (EHL), plantarflexion Motor examination - left side: 5/5: deltoids, biceps, triceps, wrist flexion, wrist extension, hip flexors, tele marketing executive, quadriceps, tibialis Anterior, toe extension (EHL), plantarflexion Detailed sensory examination: intact Reflex and gait examination: intact Reflexes: Biceps: 1+, Triceps: 1+, Brachioradialis: 1+, Patella: 1+, Achilles: 1 + Mental Status Examination: awake, alert, oriented to person, oriented to place, oriented to time, follows commands appropriately, answers questions appropriately, no agnosia, no aphasia, no aproxia Cranial nerve examination: PERRL, EOMI, visual hicks intact, corneal reflexes brisk symmetrically, sensory to face intact, mastication intact, no facial asymmetry is present, no dysarthria, hearing is intact symmetrically, soft palate elevates bilaterally upon phonation, gag reflex intact, flexes SCM and trapezius muscles symmetrically with full power, tongue protrudes midline, no atrophy or facial fasiculations present Cerebellar examination: no dysmetria, performs finger to nose and heel to dhillon symmetrically without ataxia, no gait ataxia, no truncal ataxia, no difficulty with rapid alternating movements Results - Laboratory Findings CBC and BMP: 08/01/17 06:04 08/01/17 06:04 Abnormal lab findings: Abnormal lab results RDW 14.9 % (11.5-14.5) H 08/01/17 06:04 Immature Plt Fraction 6.7 % (1.1-6.1) H 08/01/17 06:04 PT 12.8 Seconds (9.4-12.1) H 08/01/17 06:04 Albumin 3.2 g/dL (3.5-5.0) L 08/01/17 06:04 Albumin/Globulin Ratio 0.9 (1.1-2.2) L 08/01/17 06:04 Triglycerides 159 mg/dL (< 150) H 08/01/17 06:04 LDL Cholesterol, Calc 105 mg/dL (0-99) H 08/01/17 06:04 VLDL Cholesterol, Calc 32 mg/dL (< 31) H 08/01/17 06:04 HDL Cholesterol 28 mg/dL (40-59) L 08/01/17 06:04 Cholesterol/HDL Ratio 5.9 (0-4.9) H 08/01/17 06:04 Ur Specific [place] 1.029 (1.010-1.025) H 07/31/17 14:41 Urine Protein 30 mg/dL (Neg-Trace) H 07/31/17 14:41 - Diagnostic Findings Additional findings: MRI of the brain was reviewed and did not show any acute infarct evidence of old right parietal infarct Consult Discharge Plan - Plan Referrals: Constantino Moreno MD [Primary Care Provider] -
[2017-08-01 14:33] VITALS: BP 145/88
--- NOTE | 2017-08-02 13:36 | Electrocardiograph Report ---
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
== END 2017-08-01 15:32 | disposition home or self-care (01) ==
LOC: 2NENU 13:20 → EMEROO 13:20 → 2NENU 16:28
PROVIDERS: ADMIT Internal Medicine; ATTEND Internal Medicine